=== PATIENT | female | born 1940 | race Caucasian/White ===

== ENCOUNTER → 2017-01-25 | Outpatient (CLI) | payer OTHER | LOC: FIMAGING 17:42 | PROVIDERS: ATTEND Family Medicine | DX: S79.912A Unspecified injury of left hip, initial encounter (principal) ==

== ENCOUNTER → 2017-08-12 | Outpatient (CLI) | payer OTHER | LOC: BRMIMAGING 08:27 | PROVIDERS: ATTEND Physician Assistant | DX: Z13.820 Encounter for screening for osteoporosis (principal) ==